=== PATIENT | female | born 1985 | race Caucasian/White ===

== ENCOUNTER 2018-03-24 08:59 | Emergency (ER) | payer OTHER ==
[~2018-03-24] VITALS: Ht 162.6 cm; Wt 59.0 kg
[2018-03-24] MEDS ORDERED: TETRACAINE HCL/PF 0.5% UD 2 ML BOTTLE ONE (09:10)
[2018-03-24 09:53] VITALS: BP 121/79
--- NOTE | 2018-03-24 09:54 | NUR ---
Eye irrigation as per MD orders. Pt states "my eye feels good" For discharge [facility] given home ambulatory in stable condition
== END 2018-03-24 09:54 | disposition home or self-care (01) ==
LOC: ER 09:01
DX: T26.82XA Corrosions of other specified parts of left eye and adnexa, initial encounter (principal); Y93.89 Activity, other specified; Y92.89 Other specified places as the place of occurrence of the external cause; Y99.0 Civilian activity done for income or pay
CPT/HCPCS: A4606; J7040; Z7610